=== PATIENT | female | born 1935 | race Caucasian/White ===

== ENCOUNTER → 2017-05-18 | Outpatient (CLI) | payer MEDICARE, BC ==
--- NOTE | 2017-05-18 12:17 | BD ---
EXAMINATION TYPE: MG DEXA axial skeleton. DATE OF EXAM: 05/18/2017 COMPARISON: 2014 CLINICAL HISTORY: Postmenopausal female. Osteoporosis screening. Height: 5'3 Weight: 135 FRAX RISK QUESTIONS: Alcohol (3 or more units per day): no Family History (Parent hip fracture): no Glucocorticoids (More than 3mos): yes (Ex: prednisone, prednisolone, methylprednisolone, dexamethasone, and hydrocortisone). History of Fracture in Adulthood: no Secondary Osteoporosis: 1. Type 1 Diabetes: no 2. Hyperthyroidism: no 3. Menopause before 45: no 4. Malnutrition: no 5. Chronic liver disease: no Rheumatoid Arthritis: yes Current Tobacco Use: no RISK FACTORS HISTORY OF: Postmenopausal woman: MEDICATIONS: Prednisone or other steroids: yes How Long: > 5 years Additional Medications: metforim, metroprol,hydroxychlroquine,humal,lipitor,lisinoprol,predisine,lute in, Additional History EXAM MEASUREMENTS: Bone mineral densitometry was performed using the How do you roll? System. Bone mineral density as measured about the Lumbar spine is: ----- L1-L4(G/cm2): 1.049 T Score Values are as follows: ----- L2: -1.5 ----- L3: -0.8 ----- L4: -0.9 ----- L1-L4: -1.1 Bone mineral density has: Decreased -5.5% since study of: 12/06/2014 Bone mineral density about the R hip (g/cm2): 0.712 Bone mineral density about the L hip (g/cm2): 0.732 T Score values are as follows: -----R Neck: -2.3 -----L Neck: -2.3 -----R Total: -2.5 -----L Total: -2.3 Bone mineral density has: Decreased -8.5% since study of: 12/06/2014 IMPRESSION: Osteopenia (T Score between -2.5 and -1) as noted by T score values with regards to the bilateral hip s although values approach osteoporosis on the right. There is slightly increased risk of fracture and the patient may be considered for treatment. Re-Screen 2-5 years. NOTE: T-SCORE=SD OF THE YOUNG ADULT MEAN.
--- NOTE | 2017-05-20 07:11 | MM ---
Reason for exam: screening (asymptomatic). Last mammogram was performed 2 years and 1 month ago. History: Patient is postmenopausal. Physical Findings: A clinical breast exam by your physician is recommended on an annual basis and results should be correlated with mammographic findings. MG Screening Mammo w CAD Bilateral CC and MLO view(s) were taken. Prior study comparison: April 24, 2015, mammogram, performed at [facility]. April 17, 2014, mammogram, performed at [facility]. The breast tissue is heterogeneously dense. This may lower the sensitivity of mammography. No significant changes when compared with prior studies. ASSESSMENT: Benign, BI-RAD 2 RECOMMENDATION: Routine screening mammogram of both breasts in 1 year.
== END | disposition home or self-care (01) ==
LOC: RADMAMWWP 09:04
PROVIDERS: ATTEND Family Medicine
DX: Z12.31 Encounter for screening mammogram for malignant neoplasm of breast (principal); M85.852 Other specified disorders of bone density and structure, left thigh; M85.851 Other specified disorders of bone density and structure, right thigh; Z78.0 Asymptomatic menopausal state
CPT/HCPCS: 77067; 77080

== ENCOUNTER 2018-04-01 10:20 | Observation (INO) | payer MEDICARE, BC ==
--- NOTE | 2018-04-01 11:00 | ED ---
SOB HPI - General Source: patient Mode of arrival: ambulatory Limitations: no limitations <Lisa Alvarado - Last Filed: 04/01/18 13:19> <Brian Howard - Last Filed: 04/01/18 13:33> - General Chief Complaint: Shortness of Breath Stated Complaint: daphne Time Seen by Provider: 04/01/18 10:38 - History of Present Illness Initial Comments: 82-year-old female patient with past medical history significant for type 2 diabetes mellitus, hypertension, atrial fibrillation status post watchman procedure presents to the emergency department today for evaluation of shortness of breath. Patient states when she woke up this morning she felt that her breathing was off however she did go to water aerobics. Patient states that she exercised for about an hour and then afterwards felt like she was having a very hard time catching her breath. She denies any chest pain, pressure, tightness, neck pain, jaw pain, nausea, vomiting, or sweats. She denies any history of myocardial infarction. She denies any cough, nasal congestion, or sore throat. Patient denies any recent rash, fever, chills, abdominal pain, diarrhea, constipation, back pain, numbness, tingling, dizziness , weakness, hematuria, dysuria, urinary urgency, urinary frequency, headache, visual changes, or any other complaints. (Lisa Alvarado) - Related Data Home Medications Medication Instructions Recorded Confirmed Adalimumab [Humira] 40 mg SQ [id number] 08/31/13 05/16/14 Atorvastatin [Lipitor] 20 mg PO DAILY 08/31/13 05/16/14 metFORMIN HCL [Glucophage] 500 mg PO BID 08/31/13 05/16/14 Lisinopril 40 mg PO DAILY 05/16/14 05/16/14 Allergies Allergy/AdvReac Type Severity Reaction Status Date / Time Sulfa (Sulfonamide Allergy Rash/Hives Verified 04/01/18 10:37 Antibiotics) Review of Systems ROS Other: All systems not noted in ROS Statement are negative. <Lisa Alvarado - Last Filed: 04/01/18 13:19> ROS Other: All systems not noted in ROS Statement are negative. <Brian Howard - Last Filed: 04/01/18 13:33> ROS Statement: Those systems with pertinent positive or pertinent negative responses have been documented in the HPI. Past Medical History Past Medical History: Diabetes Mellitus, Hyperlipidemia, Hypertension, Rheumatoid Arthritis (RA) Additional Past Medical History / Comment(s): recent uti- just finished rx. History of Any Multi-Drug Resistant Organisms: None Reported Past Surgical History: Joint Replacement Additional Past Surgical History / Comment(s): garima knee replacements, LEFT ATRIAL APPENDAGE CLOSURE Past Anesthesia/Blood Transfusion Reactions: No Reported Reaction Past Psychological History: No Psychological Hx Reported Smoking Status: Never smoker Past Alcohol Use History: Rare Past Drug Use History: None Reported - Past Family History Mother Family Medical History: Cancer <Lisa Alvarado - Last Filed: 04/01/18 13:19> General Exam Limitations: no limitations General appearance: alert, in no apparent distress, other (This is a well- developed, well-nourished elderly female patient who appears short of breath. Vital signs upon presentation are temperature 97.5F, pulse 105, respirations 24 , blood pressure 182/102, pulse ox 93% on room air.) Eye exam: Present: normal appearance, PERRL, EOMI. Absent: scleral icterus, conjunctival injection, periorbital swelling ENT exam: Present: normal exam, normal oropharynx, mucous membranes moist Respiratory exam: Present: rales (Rales left lower lobe posteriorly). Absent: normal lung sounds bilaterally, respiratory distress, wheezes, rhonchi, stridor Cardiovascular Exam: Present: normal rhythm, tachycardia, normal heart sounds. Absent: systolic murmur, diastolic murmur, rubs, gallop, clicks GI/Abdominal exam: Present: soft, normal bowel sounds. Absent: distended, tenderness, guarding, rebound, rigid Extremities exam: Present: other (No leg edema). Absent: pedal edema, calf tenderness Neurological exam: Present: alert, oriented X3, CN II-XII intact Psychiatric exam: Present: normal affect, normal mood Skin exam: Present: warm, dry, intact, normal color. Absent: rash <Lisa Alvarado - Last Filed: 04/01/18 13:19> Vital Signs 04/01/18 04/01/18 10:35 12:00 Temperature 97.5 F L Pulse Rate 105 H 89 Respiratory 24 18 Rate Blood Pressure 182/102 191/95 O2 Sat by Pulse 93 L 96 Oximetry Medical Decision Making - Lab Data Result diagrams: 04/01/18 11:08 04/01/18 11:08 - EKG Data -: EKG Interpreted by Me - Radiology Data Radiology results: report reviewed, image reviewed <Lisa Alvarado - Last Filed: 04/01/18 13:19> - Lab Data Result diagrams: 04/01/18 11:08 04/01/18 11:08 <Brian Howard - Last Filed: 04/01/18 13:33> - Medical Decision Making 82-year-old female patient presents to the emergency department today for evaluation of sudden onset shortness of breath this morning. Physical examination did reveal rales at the left lower lobe posteriorly. Labs reviewed and did reveal BNP of 4000, d-dimer 1.03. Pulse two-view x-ray of the chest and CT chest with contrast were obtained, did reveal evidence of congestive heart failure with interstitial edema and small pleural effusions. Patient's blood pressure elevated in the department. She was given IV Lasix and Nitropaste was applied. Did give patient aspirin we will do serial troponins. She'll be admitted for cardiology consultation. Echo will be obtained. Patient does have history of watch min's procedure performed at [facility], did discuss the case with her cardiology group Dr. Elizabeth who feels patient' s care can be managed here. We will admit to [facility] with cardiology on consult. IV lasix will be continued. (Lisa Alvarado) 82-year-old female with dyspnea that began shortly prior to arrival. Patient is a hypertensive with a systolic blood pressure 191. She has positive JVD and rales bilaterally. Patient has no history of heart failure, no history of CAD. EKG shows some ST segment depression in the lateral precordial leads, no ST segment elevation, patient has no chest pain today while in the past several weeks. She will be admitted for diuresis, echo will be obtained, cardiology placed on consult. Case discussed with the admitting physician. (Brian Howard) - Lab Data Lab Results 04/01/18 04/01/18 04/01/18 Range/Units 11:08 11:08 11:08 WBC 9.7 (3.8-10.6) k/uL RBC 4.23 (3.80-5.40) m/uL Hgb 12.6 (11.4-16.0) gm/dL Hct 38.7 (34.0-46.0) % MCV 91.3 (80.0-100.0) fL MCH 29.7 (25.0-35.0) pg MCHC 32.6 (31.0-37.0) g/dL RDW 14.6 (11.5-15.5) % Plt Count 343 (150-450) k/uL Neutrophils % 77 % Lymphocytes % 13 % Monocytes % 4 % Eosinophils % 5 % Basophils % 1 % Neutrophils # 7.5 (1.3-7.7) k/uL Lymphocytes # 1.2 (1.0-4.8) k/uL Monocytes # 0.4 (0-1.0) k/uL Eosinophils # 0.5 (0-0.7) k/uL Basophils # 0.1 (0-0.2) k/uL Hypochromasia Slight PT (9.0-12.0) sec INR (<1.2) APTT (22.0-30.0) sec D-Dimer (<0.60) mg/L FEU Sodium 141 (137-145) mmol/L Potassium 4.2 (3.5-5.1) mmol/L Chloride 107 (98-107) mmol/L Carbon Dioxide 25 (22-30) mmol/L Anion Gap 9 mmol/L BUN 22 H (7-17) mg/dL Creatinine 0.68 (0.52-1.04) mg/dL Est GFR (CKD-EPI)AfAm >90 (>60 ml/min/1.73 sqM) Est GFR (CKD-EPI)NonAf 81 (>60 ml/min/1.73 sqM) Glucose 196 H (74-99) mg/dL Calcium 9.4 (8.4-10.2) mg/dL Total Bilirubin 0.5 (0.2-1.3) mg/dL AST 44 H (14-36) U/L ALT 44 (9-52) U/L Alkaline Phosphatase 122 (38-126) U/L Total Creatine Kinase 39 (30-135) U/L CK-MB (CK-2) 0.8 (0.0-2.4) ng/mL CK-MB (CK-2) Rel Index 2.1 Troponin I <0.012 (0.000-0.034) ng/mL NT-Pro-B Natriuret Pep pg/mL Total Protein 7.0 (6.3-8.2) g/dL Albumin 3.7 (3.5-5.0) g/dL 04/01/18 04/01/18 Range/Units 11:08 11:08 WBC (3.8-10.6) k/uL RBC (3.80-5.40) m/uL Hgb (11.4-16.0) gm/dL Hct (34.0-46.0) % MCV (80.0-100.0) fL MCH (25.0-35.0) pg MCHC (31.0-37.0) g/dL RDW (11.5-15.5) % Plt Count (150-450) k/uL Neutrophils % % Lymphocytes % % Monocytes % % Eosinophils % % Basophils % % Neutrophils # (1.3-7.7) k/uL Lymphocytes # (1.0-4.8) k/uL Monocytes # (0-1.0) k/uL Eosinophils # (0-0.7) k/uL Basophils # (0-0.2) k/uL Hypochromasia PT 9.6 (9.0-12.0) sec INR 0.9 (<1.2) APTT 21.4 L (22.0-30.0) sec D-Dimer 1.03 H (<0.60) mg/L FEU Sodium (137-145) mmol/L Potassium (3.5-5.1) mmol/L Chloride (98-107) mmol/L Carbon Dioxide (22-30) mmol/L Anion Gap mmol/L BUN (7-17) mg/dL Creatinine (0.52-1.04) mg/dL Est GFR (CKD-EPI)AfAm (>60 ml/min/1.73 sqM) Est GFR (CKD-EPI)NonAf (>60 ml/min/1.73 sqM) Glucose (74-99) mg/dL Calcium (8.4-10.2) mg/dL Total Bilirubin (0.2-1.3) mg/dL AST (14-36) U/L ALT (9-52) U/L Alkaline Phosphatase (38-126) U/L Total Creatine Kinase (30-135) U/L CK-MB (CK-2) (0.0-2.4) ng/mL CK-MB (CK-2) Rel Index Troponin I (0.000-0.034) ng/mL NT-Pro-B Natriuret Pep 4010 pg/mL Total Protein (6.3-8.2) g/dL Albumin (3.5-5.0) g/dL - EKG Data EKG Comments: EKG obtained at 1053 shows normal sinus rhythm with ST depression in lead 2. Ventricular rate is 99, WA interval 158, QRS duration 100, QT 378, QTC 485. No evidence of ST elevation or depression. (Lisa Alvarado) - Radiology Data CT chest with contrast for PE was obtained, report was reviewed in its entirety. Impression by Dr. Alcantar shows CHF. There is pulmonary edema, primarily interstitial by early developing alveolar as well. Small effusions. No evidence for pulmonary embolus. Some 6 mm smaller pulmonary nodularity in the peripheral upper lobes. Recommended 3 month follow-up CT chest to reassess. A possible 1.6 on May left adrenal nodule can also be reassessed at that time. Two-view x-ray of the chest is obtained. Report was reviewed in its entirety. Impression by Dr. Alcantar shows no CHF with interstitial pulmonary edema. Small effusions. (Lisa Alvarado) Disposition Decision to Admit Reason: Admit from [facility] Decision Date: 04/01/18 Decision Time: 13:19 <Lisa Alvarado - Last Filed: 04/01/18 13:19> <Brian Howard - Last Filed: 04/01/18 13:33> Clinical Impression: New onset of congestive heart failure Disposition: ADMITTED IP TO THIS HOSP Condition: Serious Referrals: Manuel Constantino MD [Primary Care Provider] - 1-2 days
[2018-04-01 11:20] LABS: Basophils # (A) 0.1 k/uL (0-0.2); Basophils % (A) 1 %; Eosinophils # (A) 0.5 k/uL (0-0.7); Eosinophils % (A) 5 %; HCT 38.7 % (34.0-46.0); HGB 12.6 gm/dL (11.4-16.0); Hypochromasia Slight; Lymphocytes # (A) 1.2 k/uL (1.0-4.8); Lymphocytes % (A) 13 %; MCH 29.7 pg (25.0-35.0); MCHC 32.6 g/dL (31.0-37.0); MCV 91.3 fL (80.0-100.0); Mean Platelet Volume 6.5; Monocytes # (A) 0.4 k/uL (0-1.0); Monocytes % (A) 4 %; Neutrophils # (A) 7.5 k/uL (1.3-7.7); Neutrophils % (A) 77 %; Platelet Count 343 k/uL (150-450); RBC 4.23 m/uL (3.80-5.40); RDW 14.6 % (11.5-15.5); WBC 9.7 k/uL (3.8-10.6)
[2018-04-01 11:29] LABS: ALT 44 U/L (9-52); AST 44 U/L (14-36); Albumin 3.7 g/dL (3.5-5.0); Alkaline Phosphatase 122 U/L (38-126); Anion Gap 9 mmol/L; Blood Urea Nitrogen 22 mg/dL (7-17); Calcium 9.4 mg/dL (8.4-10.2); Carbon Dioxide 25 mmol/L (22-30); Chloride 107 mmol/L (98-107); Glucose 196 mg/dL (74-99); Potassium 4.2 mmol/L (3.5-5.1); Sodium 141 mmol/L (137-145); Total Bilirubin 0.5 mg/dL (0.2-1.3)
[2018-04-01 11:41] LABS: INR 0.9 (<1.2); Prothrombin Time 9.6 sec (9.0-12.0)
[2018-04-01 11:43] LABS: Creatine Kinase 39 U/L (30-135)
--- NOTE | 2018-04-01 11:43 | XR ---
EXAMINATION TYPE: XR chest 2V DATE OF EXAM: 04/01/2018 COMPARISON: 12/19/2015 HISTORY: 80 0 82-year-old female with shortness of breath, difficulty breathing TECHNIQUE: AP and lateral views FINDINGS: The heart is now mildly enlarged. Bilateral perihilar and diffuse interstitial densities with Cristian B lines and small pleural effusions. IMPRESSION: New CHF with interstitial pulmonary edema. Small effusions.
[2018-04-01 11:49] LABS: D-Dimer 1.03 mg/L FEU (<0.60)
[2018-04-01 11:50] LABS: Partial Thromboplastin Time 21.4 sec (22.0-30.0)
[2018-04-01 11:56] LABS: Creatine Kinase MB 0.8 ng/mL (0.0-2.4); Troponin I <0.012 ng/mL (0.000-0.034)
[2018-04-01] MEDS ORDERED: FUROSEMIDE 10 MG/ML 4 ML VIAL IV STA (12:40)
[2018-04-01] MEDS ORDERED: NITROGLYCERIN OINT 1 INCH/GM PACKET TOPICAL STA (12:40)
--- NOTE | 2018-04-01 12:41 | CT ---
EXAMINATION TYPE: CT chest angio for PE DATE OF EXAM: 04/01/2018 COMPARISON: Radiograph same day HISTORY: 82-year-old female with pain, SOB TECHNIQUE: Contiguous axial scanning of the chest performed with IV Contrast, patient injected with 7 4 mL of Isovue 370. Coronal/sagittal MIP reconstructions performed. CT DLP: 205.9 mGycm Automated exposure control for dose reduction was used. FINDINGS: Mild cardiomegaly without pleural effusion. Metallic device in the region of the left atrial appendag e noted. Coronary vessel calcifications are present. Ascending aorta mildly aneurysmal at 4.0 cm. Mild to moderate atherosclerotic arch calcifications. 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 Enlargement of the main right and left pulmonary arteries measuring up to 3.1 cm. Satisfactory opacif ication of the pulmonary arterial system without evidence for pulmonary embolus. Scattered nonenlarged mediastinal lymph nodes. No thoracic lymphadenopathy by CT size criteria. There is diffuse central and peripheral interstitial thickening with multiple septal lines and patchy groundglass densities upper lungs with groundglass becoming slightly more confluent in the mid and l ower lungs. Small pleural effusions and some patchy peribronchovascular consolidation right lower lob e. There are some scattered 6 mm smaller peripheral pulmonary nodules in the upper lobes. Example, refer to axial image 40. Reflux of contrast into the IVC. No abnormal flattening of the interventricular septum. Possible low density thickening or underlying adrenal adenoma left measuring up to 1.6 cm. Arterial p hase imaging limits assessment. No osseous destructive process. IMPRESSION: 1. CHF. THERE IS PULMONARY EDEMA, PRIMARILY INTERSTITIAL BUT EARLY DEVELOPING ALVEOLAR WELL. 2. SMALL EFFUSIONS. 3. NO EVIDENCE FOR PULMONARY EMBOLUS. 4. SOME 6 MM AND SMALLER PULMONARY NODULARITY IN THE PERIPHERAL UPPER LOBES. RECOMMEND THREE-MONTH FO LLOW-UP CT CHEST TO REASSESS. A POSSIBLE 1.6 CM LEFT ADRENAL NODULE CAN ALSO BE REASSESSED AT THAT TI ME.
[2018-04-01] MEDS ORDERED: ASPIRIN 325 MG TAB PO STA (13:15)
[2018-04-01] MEDS ORDERED: NALOXONE 0.4 MG/ML 1 ML VIAL IV PRN (13:16)
[2018-04-01] MEDS ORDERED: ENALAPRILAT 1.25 MG/ML 1 ML VIAL IVP PRN (13:51)
[2018-04-01 14:31] VITALS: BMI 25.4
[2018-04-01] MEDS ORDERED: IPRATROPIUM-ALBUTEROL 3 ML NEB INHALATION PRN (14:50)
--- NOTE | 2018-04-01 15:26 | P.HPIM ---
History of Present Illness H&P Date: 04/01/18 Chief Complaint: Shortness of breath There were a pleasant 82-year-old female with a history significant for A. fib status post watchman procedure, diabetes mellitus, hypertension comes into the ER for shortness of breath. Patient says that she had her water aerobic exercise and while she was wearing this hocks and going to the car she suddenly felt short of breath, so that she was not even able to get into the car. She thus came into the ER for further evaluation and management. Patient does not complain of any chest pain or racing heart, does not complain of any cough, no abdominal pain, nausea and vomiting, no diarrhea constipation, no tingling numbness of the extremities, and additional rest. Patient says that most of the care is in the [facility] and if any invasive procedure is contemplated she wants to be transferred to [facility] otherwise she is okay to stay here just for CHF management Past Medical History Past Medical History: Diabetes Mellitus, Hyperlipidemia, Hypertension, Rheumatoid Arthritis (RA) Additional Past Medical History / Comment(s): recent uti- just finished rx. History of Any Multi-Drug Resistant Organisms: None Reported Past Surgical History: Joint Replacement Additional Past Surgical History / Comment(s): garima knee replacements, LEFT ATRIAL APPENDAGE CLOSURE Past Anesthesia/Blood Transfusion Reactions: No Reported Reaction Past Psychological History: No Psychological Hx Reported Smoking Status: Never smoker Past Alcohol Use History: Rare Past Drug Use History: None Reported - Past Family History Mother Family Medical History: Cancer Medications and Allergies Home Medications Medication Instructions Recorded Confirmed Type Ascorbic Acid [Vitamin C] 500 mg PO DAILY 04/01/18 04/01/18 History Aspirin EC [Ecotrin Low Dose] 81 mg PO DAILY 04/01/18 04/01/18 History Atorvastatin [Lipitor] 80 mg PO HS 04/01/18 04/01/18 History Hydroxychloroquine Sulfate 200 mg PO BID 04/01/18 04/01/18 History [Plaquenil] INSULIN LISPRO (humaLOG) [humaLOG] See Protocol SQ AC-BID 04/01/18 04/01/18 History Lisinopril [Zestril] 20 mg PO DAILY 04/01/18 04/01/18 History Lutein 10 mg PO DAILY 04/01/18 04/01/18 History Magnesium 200 mg PO DAILY 04/01/18 04/01/18 History Metoprolol Succinate [Toprol Xl] 100 mg PO DAILY 04/01/18 04/01/18 History metFORMIN HCL [metFORMIN HCL ER] 1,000 mg PO BID 04/01/18 04/01/18 History predniSONE 2.5 mg PO DAILY 04/01/18 04/01/18 History Allergies Allergy/AdvReac Type Severity Reaction Status Date / Time Sulfa (Sulfonamide Allergy Rash/Hives Verified 04/01/18 14:01 Antibiotics) Physical Exam Vitals: Vital Signs Temp Pulse Resp BP Pulse Ox 04/01/18 13:50 98.1 F 78 18 161/83 04/01/18 12:00 89 18 191/95 96 04/01/18 10:35 97.5 F L 105 H 24 182/102 93 L Intake and Output 04/01/18 04/01/18 04/01/18 06:59 14:59 22:59 Other: Weight 65.03 kg On exam, alert and oriented x3. HEENT: Conjunctivae normal. eyes normal. NECK: No JVD. No thyroid enlargement. No LNs CARDIOVASCULAR: S1-S2 positive RESPIRATION: Crackles which are bilaterally more on the base left-sided ABDOMEN: Soft, nontender . No guarding. no masses palpable. No ascites, No hepatosplenomegaly.Bowel sounds heard. LEGS: Patient is having pleasant pedal edema left lower extremity is more swollen than the right NERVOUS SYSTEM: Cranial N 2-12 grossly normal. Moves all 4 limbs. No focal deficits. No sensory deficit. No signs of cerebellar dysfucntion. Skin: no ulcer no rash Joints: No active swelling. No inflammation. Lymphatic system. No LN neck axilla or groin. Results CBC & Chem 7: 04/01/18 11:08 04/01/18 11:08 Labs: Abnormal Lab Results - Last 24 Hours (Table) 04/01/18 04/01/18 Range/Units 11:08 11:08 APTT 21.4 L (22.0-30.0) sec D-Dimer 1.03 H (<0.60) mg/L FEU BUN 22 H (7-17) mg/dL Glucose 196 H (74-99) mg/dL AST 44 H (14-36) U/L Assessment and Plan Assessment: - Acute respiratory failure - CHF exacerbation - Hypertension - Hyperlipidemia - Diabetes mellitus Plan: - We'll admit the patient to [facility] with telemetry - We will continue Lasix 40 mg IV twice a day - Continue patient's home medications except for we'll hold off on the patient' s metformin and continue the sliding scale insulin - Cardiology consulted - We'll order for echocardiogram - Patient had a CT of the chest done which showed no PE but she shows a pulmonary nodule needs outpatient follow-up with a repeat CAT scan - Monitor troponin levels - Patient blood pressure was elevated in the ER will closely monitor the best pressure - We'll order for THE LEFT LOWER EXTREMITY TO RULE OUT DVT - DVT and GI prophylaxis - We'll order for lab work in the morning - Expected length of stay more than 2 midnights - patient is full code length Time with Patient: Greater than 30
[2018-04-01] MEDS: FUROSEMIDE 10 MG/ML 4 ML VIAL IV SCH (15:41)
--- NOTE | 2018-04-01 16:18 | US ---
EXAMINATION TYPE: US venous doppler duplex LE LT DATE OF EXAM: 04/01/2018 4:01 PM COMPARISON: NONE CLINICAL HISTORY: r/o dvt. Slight leg swelling but has gone down with lasiks. No redness. No pain. Knee replacement. Hx of blood clot in right posterior knee per patient. No blood thinners. SIDE PERFORMED: Left TECHNIQUE: The lower extremity deep venous system is examined utilizing real time linear array sonog madhavi with graded compression, doppler sonography and color-flow sonography. VESSELS IMAGED: External Iliac Vein (EIV) Common Femoral Vein Deep Femoral Vein Greater Saphenous Vein * Femoral Vein Popliteal Vein Small Saphenous Vein * Proximal Calf Veins (* superficial vessels) Left Leg: Negative for DVT IMPRESSION: Normal exam. No evidence of deep venous thrombosis in the left leg.
[2018-04-01 17:18] LABS: Glucose,Whole Blood 130 mg/dL (75-99)
[2018-04-01] MEDS: INSULIN ASPART 100 UNIT/ML 1 ML 10 ML VIAL SQ SCH ×2 (17:21→21:54)
[2018-04-01 20:28] LABS: Glucose,Whole Blood 142 mg/dL (75-99)
[2018-04-01] MEDS ORDERED: ATORVASTATIN 80 MG TAB PO SCH (21:00)
[2018-04-01] MEDS: HYDROXYCHLOROQUINE SULFATE 200 MG TAB PO SCH (21:55)
[2018-04-02] MEDS: FUROSEMIDE 10 MG/ML 4 ML VIAL IV SCH (00:10)
[2018-04-02 06:16] LABS: Glucose,Whole Blood 173 mg/dL (75-99)
[2018-04-02 06:25] LABS: HCT 35.6 % (34.0-46.0); HGB 11.2 gm/dL (11.4-16.0); MCH 28.2 pg (25.0-35.0); MCHC 31.6 g/dL (31.0-37.0); MCV 89.2 fL (80.0-100.0); Mean Platelet Volume 6.5; Platelet Count 378 k/uL (150-450); RBC 3.99 m/uL (3.80-5.40); RDW 14.6 % (11.5-15.5); WBC 8.9 k/uL (3.8-10.6)
[2018-04-02 06:37] LABS: Calcium 9.3 mg/dL (8.4-10.2)
[2018-04-02] MEDS: INSULIN ASPART 100 UNIT/ML 1 ML 10 ML VIAL SQ SCH ×2 (06:51→12:55)
[2018-04-02] MEDS: HYDROXYCHLOROQUINE SULFATE 200 MG TAB PO SCH (08:31)
[2018-04-02] MEDS ORDERED: ASPIRIN 81 MG PO SCH (09:00)
[2018-04-02] MEDS ORDERED: LISINOPRIL 20 MG TAB PO SCH (09:00)
[2018-04-02] MEDS ORDERED: METOPROLOL SUCCINATE (ER) 100 MG TAB.ER.24H PO SCH (09:00)
[2018-04-02] MEDS ORDERED: predniSONE 2.5 MG TAB PO SCH (09:00)
[2018-04-02 09:32] VITALS: RESP 18
[2018-04-02 11:25] VITALS: BP 133/69; PULSE 76; TEMP 97
[2018-04-02 12:18] LABS: Glucose,Whole Blood 208 mg/dL (75-99)
--- NOTE | 2018-04-02 13:04 | ECHOF ---
Referral Reason:CHF MEASUREMENTS -------- HEIGHT: 162.6 cm WEIGHT: 59.0 kg BP: IVSd: 1.3 cm (0.6 - 1.1) LVIDd: 5.0 cm (3.9 - 5.3) LVPWd: 1.1 cm (0.6 - 1.1) IVSs: 1.3 cm LVIDs: 3.7 cm LVPWs: 2.0 cm LA Diam: 4.1 cm (2.7 - 3.8) LAESV Index (A-L): 40.44 ml/m Ao Diam: 3.5 cm (2.0 - 3.7) AV Cusp: 1.6 cm (1.5 - 2.6) LA Diam: 3.5 cm (2.7 - 3.8) MV EXCURSION: 23.948 mm (> 18.000) MV EF SLOPE: 101 mm/s (70 - 150) EPSS: 1.2 cm MV E Garo: 0.77 m/s MV DecT: 257 ms MV A Garo: 0.73 m/s MV E/A Ratio: 1.04 RAP: 5.00 mmHg RVSP: 38.81 mmHg FINDINGS -------- Sinus rhythm. This was a technically adequate study. The left ventricular size is normal. There is mild concentric left ventricular hypertrophy. Overa ll left ventricular systolic function is moderate-severely impaired with, an EF between 30 - 35 %. Apical anterior LV wall motion is hypokinetic. Apical inferior LV wall motion is hypokinetic. A nterseptal Hypokinesis [place] Hypokinesis. The right ventricle is normal in size. The left atrium is mildly dilated. LA is midly dilated 29-33ml/m2. The right atrial size is normal. There is mild aortic valve sclerosis. There is no evidence of aortic regurgitation. Mild mitral annular calcification present. [id number] mitral regurgitation is present. Mild tricuspid regurgitation present. There is mild pulmonary hypertension. The right ventricular systolic pressure, as measured by Doppler, is 38.81mmHg. There is no pulmonic regurgitation present. The aortic root size is normal. There is no pericardial effusion. CONCLUSIONS -------- 1. The left ventricular size is normal. 2. There is mild concentric left ventricular hypertrophy. 3. Overall left ventricular systolic function is moderate-severely impaired with, an EF between 30 - 35 %. 4. Apical anterior LV wall motion is hypokinetic. 5. Apical inferior LV wall motion is hypokinetic. 6. Anterseptal Hypokinesis 7. [place] Hypokinesis. 8. The right ventricle is normal in size. 9. The left atrium is mildly dilated. 10. LA is midly dilated 29-33ml/m2. 11. The right atrial size is normal. 12. There is mild aortic valve sclerosis. 13. Mild mitral annular calcification present. 14. Rfyh-rl-[id number] mitral regurgitation is present. 15. Mild tricuspid regurgitation present. 16. There is mild pulmonary hypertension. 17. The right ventricular systolic pressure, as measured by Doppler, is 38.81mmHg. 18. There is no pulmonic regurgitation present. 19. The aortic root size is normal. 20. There is no pericardial effusion. [employer] [facility] OPERATOR: Jennifer Boucher RDCS
--- NOTE | 2018-04-02 13:22 | P.DS ---
Providers Date of admission: 04/01/18 13:31 Attending physician: Antionette Jack Consults: 04/01/18 13:17 Consult Physician Routine Consulting Provider: [facility] Consult Reason/Comments: New onset CHF Do you want consulting provider notified?: Yes Primary care physician: Manuel Constantino [facility] Course: This is a pleasant 82 years old female with past medical history of diabetes mellitus, hyperlipidemia, hypertension, rheumatoid arthritis, who presents because of dyspnea of one-day duration after she had aerobic exercise. It will started yesterday morning. She came to emergency room she had CAT scan of the chest which shows pulmonary edema consistent with CHF. Small effusions with no evidence of PE. She has also 6 mm pulmonary nodule in the upper lobes and 1.6 cm left adrenal nodule, radiologist recommended to repeat CAT scan in 3 months. His patient today she feels better . Patient is less dyspneic. No chest pain , no change in urine or bowel habits. No fever. Patient has been evaluated by rn invasive and she might need intervention. Patient with a very clear that she wants her to be discharged to [facility] to see her rn invasive there, patient doctor at bedside and she requested the same thing for her mother. And she agrees for transfer to [facility]. Patient and daughter at bedside were informed with the pulmonary nodules and anginal nodules and a recommendation for outpatient follow-up. Pulmonary contact information is provided for the patient. Problems and management plan was discussed with the patient and daughters upon her request at bedside. They verbalized understanding and acceptance Patient was found stable and can be discharged to [facility] as a transfer and guarded prognosis physical exam Gen.: Patient alert awake and oriented X 3, NOT IN DISTRESS CVS: s1-s2, RRR, no murmur -CHEST:bilateral CTA, no wheezing . Bilateral basal crepitation Abdomen: Soft, no tenderness, no distention, positive bowel sounds Extremities: No leg edema or induration Time spent more than 35 minutes Patient Condition at Discharge: Serious Plan - Discharge Summary New Discharge Prescriptions: No Action predniSONE 2.5 mg PO DAILY Magnesium 200 mg PO DAILY Lutein 10 mg PO DAILY Lisinopril [Zestril] 20 mg PO DAILY Atorvastatin [Lipitor] 80 mg PO HS Aspirin EC [Ecotrin Low Dose] 81 mg PO DAILY Ascorbic Acid [Vitamin C] 500 mg PO DAILY Metoprolol Succinate [Toprol Xl] 100 mg PO DAILY INSULIN LISPRO (humaLOG) [humaLOG] See Protocol SQ AC-BID Hydroxychloroquine Sulfate [Plaquenil] 200 mg PO BID metFORMIN HCL [metFORMIN HCL ER] 1,000 mg PO BID Discharge Medication List Ascorbic Acid [Vitamin C] 500 mg PO DAILY 04/01/18 [History] Aspirin EC [Ecotrin Low Dose] 81 mg PO DAILY 04/01/18 [History] Atorvastatin [Lipitor] 80 mg PO HS 04/01/18 [History] Hydroxychloroquine Sulfate [Plaquenil] 200 mg PO BID 04/01/18 [History] INSULIN LISPRO (humaLOG) [humaLOG] See Protocol SQ AC-BID 04/01/18 [History] Lisinopril [Zestril] 20 mg PO DAILY 04/01/18 [History] Lutein 10 mg PO DAILY 04/01/18 [History] Magnesium 200 mg PO DAILY 04/01/18 [History] Metoprolol Succinate [Toprol Xl] 100 mg PO DAILY 04/01/18 [History] metFORMIN HCL [metFORMIN HCL ER] 1,000 mg PO BID 04/01/18 [History] predniSONE 2.5 mg PO DAILY 04/01/18 [History] Follow up Appointment(s)/Referral(s): Manuel Constantino MD [Primary Care Provider] - 1-2 days
[2018-04-02] MEDS ORDERED: HEPARIN SODIUM,PORCINE 5,000 UNIT/ML 1 ML VIAL IV ONE (13:37)
[2018-04-02] MEDS ORDERED: HEPARIN SODIUM,PORCINE 5,000 UNIT/ML 1 ML VIAL IV PRN (13:37)
--- NOTE | 2018-04-02 13:42 | P.CRDCN ---
History of Present Illness Consult date: 04/02/18 Reason for Consult (text): CHF, new onset Chief complaint: Shortness of breath History of present illness: this is an 82-year-old female patient with history of atrial fibrillation status post watchman procedure done 2-1/2 years ago, diabetes mellitus type 2, hypertension, rheumatoid arthritis. Patient normally follows with the [facility] and has had all her cardiac procedures done at [facility]. Patient states that she was at the [facility] and just finished one hour ofwater aerobics. She was getting dressed and developed significant shortness of breath that she has not experienced before. She denies any history of heart failure in the past. She drove herself to [facility] emergency center for evaluation.patient was admitted to the selective care unit and started on Lasix 40 mg IV every 12 hours. Records obtained from patient's daughter at the bedside revealed in January 2016 a RACHAEL that showed a atrium mild to moderately enlarged with watchman well-seated. Echocardiogram done in November 2015 revealed diffuse global hypokinesia and the left ventricle with EF of 50. Dr. Santiago discussed case with patient's sole tier at [facility]. EKG reveals sinus mechanism with minor changes and T-wave. Chest x-ray reveals Congestive heart failure with interstitial pulmonary edema, small effusion.CTA of the chest reveals CHF, pulmonary edema. No pulmonary embolism. 6 mm and smaller pulmonary nodularity in the peripheral upper lobes. Laboratory data review: WBC 8.9, hemoglobin 11.2, platelets 378, sodium 138, potassium 4.0, creatinine 0.9 , cardiac enzymes 0.012, 0.148, 0.171.d-dimer 1.03. ProBNP 4010 Current cardiac medications include Toprol-XL 100 mg daily, lisinopril 20 mg daily, Lipitor 80 mg at bedtime, aspirin 81 mg daily. At the time of my exam: CONSTITUTIONAL: Denies fever. Denies chills. EYES: Denies blurred vision. Denies vision changes. Denies eye pain. EARS, NOSE, MOUTH & THROAT: Denies headache. Denies sore throat. Denies ear pain. CARDIOVASCULAR: Denies chest pain. Denies shortness of breath. Denies orthopnea. Denies PND. Denies palpitations. denies pedal edema. RESPIRATORY: Denies cough. GASTROINTESTINAL: Denies abdominal pain. Denies diarrhea. Denies constipation. Denies nausea. Denies vomiting. MUSCULOSKELETAL: Denies myalgias. Complains of pain to the left elbow. INTEGUMENTARY: Denies pruitis. Denies rash. NEUROLOGIC: Denies numbness. Denies tingling. Denies weakness. PSYCHIATRIC: Denies anxiety. Denies depression. ENDOCRINE: Denies fatigue. Denies weight change. Denies polydipsia. Denies polyurina. GENITOURINARY: Denies burning, hematuria or urgency with micturation. HEMATOLOGIC: Denies history of anemia. Denies bleeding. Blood pressure 133/69, heart rate 76, afebrile, maintaining oxygen saturation on room air at 94%. GENERAL: This is an 82-year-old female in no apparent distress at the time of my examination. HEENT: Head is atraumatic, normocephalic. Pupils are equal, round. Sclerae anicteric. Conjunctivae are clear. Mucous membranes of the mouth are moist. Neck is supple. There is no jugular venous distention. No carotid bruit is heard. LUNGS: Clear to auscultation no wheezes, rales or rhonchi. No chest wall tenderness is noted on palpation or with deep breathing. HEART: Regular rate and rhythm without murmurs, rubs or gallops. S1 and S2 heard. ABDOMEN: Soft, nontender. Bowel sounds are heard. No organomegaly noted. EXTREMITIES: No evidence of lower extremity edema and no calf tenderness noted. VASCULAR: Radial and dorsalis pedis pulses palpated, no evidence of clubbing. NEUROLOGIC: Patient is awake, alert and oriented x3. No focal neuro deficits. ASSESSMENT acute diastolic heart failure Paroxysmal atrial fibrillation status post watchman procedure hyperlipidemia Hypertension PLAN continue Lasix 40 mg IV but decreased to daily. echocardiogram ordered continue Toprol-XL 100 mg daily, lisinopril 20 mg daily, Lipitor 80 mg at bedtime, aspirin 81 mg daily arrangements are being made for patient being transferred to [facility] Thank you kindly for this consultation. Nurse Practitioner note has been reviewed, I agree with a documented findings and plan of care. Patient was seen and examined. Past Medical History Past Medical History: Diabetes Mellitus, Hyperlipidemia, Hypertension, Rheumatoid Arthritis (RA) Additional Past Medical History / Comment(s): recent uti- just finished rx. History of Any Multi-Drug Resistant Organisms: None Reported Past Surgical History: Joint Replacement Additional Past Surgical History / Comment(s): garima knee replacements, LEFT ATRIAL APPENDAGE CLOSURE Past Anesthesia/Blood Transfusion Reactions: No Reported Reaction Past Psychological History: No Psychological Hx Reported Smoking Status: Never smoker Past Alcohol Use History: Rare Past Drug Use History: None Reported - Past Family History Mother Family Medical History: Cancer Father Additional Family Medical History / Comment(s): Father has history of myocardial infarction at age 60. Medications and Allergies Home Medications Medication Instructions Recorded Confirmed Type Ascorbic Acid [Vitamin C] 500 mg PO DAILY 04/01/18 04/01/18 History Aspirin EC [Ecotrin Low Dose] 81 mg PO DAILY 04/01/18 04/01/18 History Atorvastatin [Lipitor] 80 mg PO HS 04/01/18 04/01/18 History Hydroxychloroquine Sulfate 200 mg PO BID 04/01/18 04/01/18 History [Plaquenil] INSULIN LISPRO (humaLOG) [humaLOG] See Protocol SQ AC-BID 04/01/18 04/01/18 History Lisinopril [Zestril] 20 mg PO DAILY 04/01/18 04/01/18 History Lutein 10 mg PO DAILY 04/01/18 04/01/18 History Magnesium 200 mg PO DAILY 04/01/18 04/01/18 History Metoprolol Succinate [Toprol Xl] 100 mg PO DAILY 04/01/18 04/01/18 History metFORMIN HCL [metFORMIN HCL ER] 1,000 mg PO BID 04/01/18 04/01/18 History predniSONE 2.5 mg PO DAILY 04/01/18 04/01/18 History Allergies Allergy/AdvReac Type Severity Reaction Status Date / Time Sulfa (Sulfonamide Allergy Rash/Hives Verified 04/01/18 14:01 Antibiotics) Physical Exam Vitals: Vital Signs Temp Pulse Pulse Resp BP BP Pulse Ox 04/02/18 08:00 96.9 F L 70 18 107/53 95 04/02/18 07:54 17 04/02/18 04:00 97.1 F L 78 17 164/78 97 04/02/18 00:00 67 17 130/58 96 04/01/18 20:00 98.8 F 69 16 158/70 95 04/01/18 15:59 97.7 F 72 18 152/79 98 04/01/18 13:50 98.1 F 78 18 161/83 04/01/18 12:00 89 18 191/95 96 04/01/18 10:35 97.5 F L 105 H 24 182/102 93 L Intake and Output 04/01/18 04/02/18 04/02/18 22:59 06:59 14:59 Intake Total 970 20 190 Output Total 300 Balance 670 20 190 Intake: IV 10 20 10 Invasive Line 1 10 20 10 Oral 960 180 Output: Urine 300 Other: Voiding Method Toilet Toilet # Voids 2 1 Weight 59.4 kg Results 04/02/18 05:25 04/02/18 05:25 Cardiac Enzymes 04/01/18 04/01/18 04/01/18 Range/Units 11:08 11:08 17:39 AST 44 H (14-36) U/L CK-MB (CK-2) 0.8 (0.0-2.4) ng/mL Troponin I <0.012 0.148 H* (0.000-0.034) ng/mL 04/01/18 Range/Units 23:12 AST (14-36) U/L CK-MB (CK-2) (0.0-2.4) ng/mL Troponin I 0.171 H* (0.000-0.034) ng/mL Coagulation 04/01/18 Range/Units 11:08 PT 9.6 (9.0-12.0) sec APTT 21.4 L (22.0-30.0) sec CBC 04/01/18 04/02/18 Range/Units 11:08 05:25 WBC 9.7 8.9 (3.8-10.6) k/uL RBC 4.23 3.99 (3.80-5.40) m/uL Hgb 12.6 11.2 L (11.4-16.0) gm/dL Hct 38.7 35.6 (34.0-46.0) % Plt Count 343 378 (150-450) k/uL Comprehensive Metabolic Panel 04/01/18 04/02/18 Range/Units 11:08 05:25 Sodium 141 138 (137-145) mmol/L Potassium 4.2 4.0 (3.5-5.1) mmol/L Chloride 107 98 (98-107) mmol/L Carbon Dioxide 25 30 (22-30) mmol/L BUN 22 H 30 H (7-17) mg/dL Creatinine 0.68 0.90 (0.52-1.04) mg/dL Glucose 196 H 150 H (74-99) mg/dL Calcium 9.4 9.3 (8.4-10.2) mg/dL AST 44 H (14-36) U/L ALT 44 (9-52) U/L Alkaline Phosphatase 122 (38-126) U/L Total Protein 7.0 (6.3-8.2) g/dL Albumin 3.7 (3.5-5.0) g/dL Current Medications Generic Name Dose Route Start Last Admin Trade Name Freq PRN Reason Stop Dose Admin Albuterol/Ipratropium 3 ml 04/01/18 14:50 Duoneb 0.5 Mg-3 Mg/3 Ml Soln INHALATION RT-QID PRN Shortness Of Breath Or Wheezing Aspirin 81 mg 04/02/18 09:00 04/02/18 08:32 Aspirin PO 81 mg DAILY DAMIEN Administration Atorvastatin Calcium 80 mg 04/01/18 21:00 04/01/18 21:55 Lipitor PO 80 mg HS DAMIEN Administration Enalaprilat 1.25 mg 04/01/18 13:51 Vasotec IVP Q6HR PRN Blood Pressure - High Furosemide 40 mg 04/01/18 13:30 04/02/18 00:10 Lasix IV 40 mg Q12H DAMIEN Administration Hydroxychloroquine Sulfate 200 mg 04/01/18 21:00 04/02/18 08:31 Plaquenil PO 200 mg BID DAMIEN Administration Insulin Aspart 0 unit 04/01/18 17:30 04/02/18 06:51 Novolog SQ 2 unit ACHS DAMIEN Administration Protocol Lisinopril 20 mg 04/02/18 09:00 04/02/18 08:31 Zestril PO 20 mg DAILY DAMIEN Administration Metoprolol Succinate 100 mg 04/02/18 09:00 04/02/18 08:31 Toprol Xl PO 100 mg DAILY DAMIEN Administration Naloxone HCl 0.2 mg 04/01/18 13:16 Narcan IV Q2M PRN Opioid Reversal Prednisone 2.5 mg 04/02/18 09:00 04/02/18 08:31 PO 2.5 mg DAILY DAMIEN Administration Intake and Output 04/01/18 04/02/18 04/02/18 22:59 06:59 14:59 Intake Total 970 20 190 Output Total 300 Balance 670 20 190 Intake: IV 10 20 10 Invasive Line 1 10 20 10 Oral 960 180 Output: Urine 300 Other: Voiding Method Toilet Toilet # Voids 2 1 Weight 59.4 kg 04/02/18 05:25 04/02/18 05:25
[2018-04-02] MEDS ORDERED: HEPARIN SOD,PORK IN 0.45% NACL 25,000 UNIT in 0.45% NACL 1 250ML.BAG IV SCH (13:45)
[2018-04-03 10:30] LABS: Hemoglobin A1C 6.7 % (4.0-6.0)
== END 2018-04-02 14:25 | disposition other institution (70) ==
LOC: EC 10:20 → 3SCARD 13:31
PROVIDERS: ADMIT Hospitalist; ATTEND Hospitalist
DX: I11.0 Hypertensive heart disease with heart failure (principal); I50.31 Acute diastolic (congestive) heart failure; J96.00 Acute respiratory failure, unspecified whether with hypoxia or hypercapnia; I48.0 Paroxysmal atrial fibrillation; E11.9 Type 2 diabetes mellitus without complications; R91.8 Other nonspecific abnormal finding of lung field; E27.9 Disorder of adrenal gland, unspecified; M06.9 Rheumatoid arthritis, unspecified; E78.5 Hyperlipidemia, unspecified; Z79.82 Long term (current) use of aspirin; Z79.52 Long term (current) use of systemic steroids; Z79.4 Long term (current) use of insulin; Z79.899 Other long term (current) drug therapy; Z88.2 Allergy status to sulfonamides; Z96.653 Presence of artificial knee joint, bilateral; Z87.440 Personal history of urinary (tract) infections; Z80.9 Family history of malignant neoplasm, unspecified
CPT/HCPCS: 96376 ×2; 96374; 99285; 36415; 93005; 93306; 85379; 83880; 80053; 80048; 82550; 82553; 84484; 85025; 85027; 85610; 85730; 83036; 71046; 93971; 71275; G0378 ×2; J1940 ×2; J7512; Q9967; J1644

== ENCOUNTER → 2018-06-14 | Outpatient (CLI) | payer MEDICARE, BC ==
--- NOTE | 2018-06-16 09:12 | MM ---
Reason for exam: screening (asymptomatic). Last mammogram was performed 1 year and 1 month ago. History: Patient is postmenopausal. Physical Findings: A clinical breast exam by your physician is recommended on an annual basis and results should be correlated with mammographic findings. MG Screening Mammo w CAD Bilateral CC and MLO view(s) were taken. Prior study comparison: May 18, 2017, bilateral MG screening mammo w CAD. April 24, 2015, mammogram, performed at [facility]. The breast tissue is heterogeneously dense. This may lower the sensitivity of mammography. There is chronic nodularity in the left breast. No significant changes when compared with prior studies. ASSESSMENT: Negative, BI-RAD 1 RECOMMENDATION: Routine screening mammogram of both breasts in 1 year.
== END | disposition home or self-care (01) ==
LOC: RADMAMWWP 12:47
PROVIDERS: ATTEND Family Medicine
DX: Z12.31 Encounter for screening mammogram for malignant neoplasm of breast (principal)
CPT/HCPCS: 77067

== ENCOUNTER → 2019-11-07 | Outpatient (CLI) | payer MEDICARE, BC ==
--- NOTE | 2019-11-07 17:38 | BD ---
EXAMINATION TYPE: Axial Bone Density DATE OF EXAM: 11/07/2019 COMPARISON: NONE CLINICAL HISTORY: 84 YR OLD FEMALE......ICD-10 CODE: Z78.0 ASYMPTOMATIC MENOPAUSAL STATE Height: 62.3 Weight: 133 FRAX RISK QUESTIONS: Family History (Parent hip fracture): NO FX Glucocorticoids (More than 3mos): YES (Ex: prednisone, prednisolone, methylprednisolone, dexamethasone, and hydrocortisone). Secondary Osteoporosis: YES 1. Type 1 Diabetes: YES Rheumatoid Arthritis: YES RISK FACTORS HISTORY OF: Family History of Osteoporosis: YES, MOTHER...NO FX Postmenopausal woman: YES, AT ABOUT 47 YR OLD Lost more than 2 inches in height since high school: YES Frequent falls: ELDERLY, UNSTEADY Hyperparathyroidism: NO Adrenal Insufficiency: NO MEDICATIONS: Prednisone or other steroids: YES, DAILY, 2.5 MGS FOR ABOUT 15 YRS Additional Medications: BP MEDS, INSULIN AND METFORMIN, CHOLESTEROL MEDS, VIT C Additional History: RA, DIABETIC, HYPERTENSION, CHOLESTEROL, EXAM MEASUREMENTS: Bone mineral densitometry was performed using the [employer] System. Bone mineral density as measured about the Lumbar spine is: ----- L1-L4(G/cm2): 1.111 T Score Values are as follows: ----- L1: -1.3 ----- L2: -0.7 ----- L3: 0.0 ----- L4: -0.5 ----- L1-L4: -0.6 Bone mineral density has: Increased 5.7% since study of: 05.18.2017 Bone mineral density about the R hip (g/cm2): 0.693 Bone mineral density about the L hip (g/cm2): 0.700 T Score values are as follows: -----R Neck: -2.3 -----L Neck: -1.9 -----R Total: -2.5 -----L Total: -2.4 Bone mineral density has: Decreased -1.1% since study of: 05.18.2017 FRAX%s: THERE IS A 30.4% CHANCE FOR A MAJOR OSTEOPOROTIC FX AND A 13.3% FOR A HIP.....PROBABILITY F OR FX IN 10 YRS TIME IMPRESSION: Osteopenia NOTE: T-SCORE=SD OF THE YOUNG ADULT MEAN.
== END | disposition home or self-care (01) ==
LOC: RADBDWWP 09:07
PROVIDERS: ATTEND Family Medicine
DX: M85.80 Other specified disorders of bone density and structure, unspecified site (principal); Z78.0 Asymptomatic menopausal state
CPT/HCPCS: 77080

== ENCOUNTER → 2020-02-21 | Outpatient (CLI) | payer MEDICARE, BC ==
--- NOTE | 2020-02-22 10:00 | ECHOF ---
Referral Reason:I10 Hypertension MEASUREMENTS -------- HEIGHT: 160.0 cm WEIGHT: 59.9 kg BP: RVIDd: 2.6 cm (< 3.3) IVSd: 1.1 cm (0.6 - 1.1) LVIDd: 4.8 cm (3.9 - 5.3) LVPWd: 1.0 cm (0.6 - 1.1) IVSs: 4.1 cm LVIDs: 2.0 cm LVPWs: 0.2 cm LA Diam: 4.8 cm (2.7 - 3.8) LAESV Index (A-L): 52.86 ml/m Ao Diam: 3.2 cm (2.0 - 3.7) AV Cusp: 2.0 cm (1.5 - 2.6) LA Diam: 4.6 cm (2.7 - 3.8) MV EXCURSION: 17.297 mm (> 18.000) MV EF SLOPE: 137 mm/s (70 - 150) EPSS: 0.9 cm MV E Garo: 1.11 m/s MV DecT: 109 ms MV A Garo: 0.78 m/s MV E/A Ratio: 1.43 RAP: 5.00 mmHg RVSP: 52.71 mmHg FINDINGS -------- Sinus rhythm. This was a technically good study. The left ventricular size is normal. There is mild concentric left ventricular hypertrophy. Overa ll left ventricular systolic function is low-normal with, an EF between 50 - 55 %. The right ventricle is normal in size. The left atrium is markedly dilated. LA is severely dilated >40 ml/m2 The right atrial size is normal. The aortic valve is trileaflet, and appears structurally normal. No aortic stenosis or regurgitation. Mild mitral annular calcification present. Moderate mitral regurgitation is present. Mild tricuspid regurgitation present. There is moderate pulmonary hypertension. Trace/mild (physiologic) pulmonic regurgitation. The aortic root size is normal. There is no pericardial effusion. CONCLUSIONS -------- 1. The left ventricular size is normal. 2. There is mild concentric left ventricular hypertrophy. 3. Overall left ventricular systolic function is low-normal with, an EF between 50 - 55 %. 4. The right ventricle is normal in size. 5. The left atrium is markedly dilated. 6. LA is severely dilated >40 ml/m2 7. The right atrial size is normal. 8. Mild mitral annular calcification present. 9. Moderate mitral regurgitation is present. 10. Mild tricuspid regurgitation present. 11. There is moderate pulmonary hypertension. 12. Trace/mild (physiologic) pulmonic regurgitation. 13. The aortic root size is normal. 14. There is no pericardial effusion. WASHER BLANKET: Jennifer Boucher RDCS
== END | disposition home or self-care (01) ==
LOC: RADECHMAIN 12:58
PROVIDERS: ATTEND Family Medicine
DX: I08.1 Rheumatic disorders of both mitral and tricuspid valves (principal); I27.20 Pulmonary hypertension, unspecified; I37.1 Nonrheumatic pulmonary valve insufficiency
CPT/HCPCS: 93306